=== PATIENT | female | born 1975 | race Two or more races ===

== ENCOUNTER 2016-05-22 23:20 | Inpatient (IN) | payer MEDICARE, MEDICAID ==
[2016-05-23] MEDS ORDERED: SERTRALINE HCL25 M3 PO (00:09)
[2016-05-23] MEDS ORDERED: VIBRAMYCIN100 M1 PO ×2 (00:09→00:16)
[2016-05-23] MEDS ORDERED: HYDROCODON-ACE1 EA16 PO (00:10)
[2016-05-23] MEDS ORDERED: NASAL ALLERGY S13 ML (00:11)
[2016-05-23] MEDS ORDERED: VITAMIN A10000 UNI2 PO (00:11)
[2016-05-23] MEDS ORDERED: DULERA 200 MCG/13 G1 INH (00:13)
[2016-05-23] MEDS ORDERED: PEPTO-BISM262 MG/11 PO (00:13)
[2016-05-23] MEDS ORDERED: B-121000 MC2 PO (00:13)
[2016-05-23] MEDS ORDERED: DIFLUCAN100 M1 PO (00:14)
[2016-05-23] MEDS ORDERED: VITAMIN C500 M2 PO (00:15)
[2016-05-23] MEDS ORDERED: PROMETHAZINE HC25 M3 PO (00:18)
[2016-05-23 00:57] LABS: EOS % 2.2 % (0-7); HCT-HEMATOCRIT 26.9 % (34.0-49.0); HGB-HEMOGLOBIN 9.2 gm/dl (12.0-15.5); LYMPH % 49.4 % (20-45); LYMPH ABSOLUTE COUNT 0.9 tho/cmm (0.8-4.5); MCH (MEAN CORPUSCULAR HGB) 31.1 pg (28.0-32.0); MCHC MEAN CORPUSCULAR HGB CONC 34.2 % (32.0-36.0); MCV (MEAN CELL VOLUME) 90.9 fl (82.0-96.0); MEAN PLATELET VOLUME 10.4 cmc (9.4-12.4); MONO % 14.4 % (0-12); MONOCYTE ABSOLUTE COUNT 0.3 tho/cmm (0.0-1.2); NEUTROPHIL ABSOLUTE COUNT 0.6 tho/cmm (1.6-8.0); NEUTROPHIL-AUTOMATED 0.6 tho/cmm (1.6-8.0); PLATELET COUNT 172 tho/cmm (150-450); RED BLOOD COUNT 2.96 mil/cmm (4.00-5.20); RED CELL DISTRIBUTION WIDTH 14.4 % (12.4-16.4)
[2016-05-23 01:03] LABS: WHITE BLOOD COUNT 1.8 tho/cmm (4.0-10.0)
--- NOTE | 2016-05-23 04:18 | NUR ---
KAILEE YUAN APPLIED TO PT.
[2016-05-23 05:49] LABS: BASO % 0.7 % (0-2); EOS % 1.4 % (0-7); HCT-HEMATOCRIT 26.8 % (34.0-49.0); LYMPH % 52.1 % (20-45); LYMPH ABSOLUTE COUNT 0.7 tho/cmm (0.8-4.5); MCH (MEAN CORPUSCULAR HGB) 30.4 pg (28.0-32.0); MCHC MEAN CORPUSCULAR HGB CONC 33.6 % (32.0-36.0); MCV (MEAN CELL VOLUME) 90.5 fl (82.0-96.0); MONO % 14.1 % (0-12); MONOCYTE ABSOLUTE COUNT 0.2 tho/cmm (0.0-1.2); NEUTROPHILS % 31.7 % (40-80); PLATELET COUNT 164 tho/cmm (150-450); RED BLOOD COUNT 2.96 mil/cmm (4.00-5.20); RED CELL DISTRIBUTION WIDTH 14.5 % (12.4-16.4)
[2016-05-23 06:09] LABS: ALB/GLOB RATIO 0.4 (0.8-2.0); ALBUMIN 2.3 g/dl (3.5-5.0); ALKALINE PHOSPHATASE 62 U/L (33-138); ALT/SGPT 18 U/L (12-78); ANION GAP 11 mmol/L (0-20); AST/SGOT 24 U/L (10-40); BILIRUBIN,TOTAL 0.1 mg/dl (0-1.5); BLOOD UREA NITROGEN 7 mg/dl (6-24); CALCIUM 8.3 mg/dl (8.5-10.5); CARBON DIOXIDE-VENOUS 27 mmol/L (22-32); CHLORIDE 109 mmol/l (96-110); CREATININE 0.47 mg/dl (0.50-1.10); GLUCOSE 76 mg/dL (70-110); POTASSIUM 3.9 mmol/L (3.7-5.1); SODIUM 143 mmol/L (135-145); eGFR VALUE FOR BLACK >60 mL/Min
[2016-05-23 06:12] LABS: WHITE BLOOD COUNT 1.4 tho/cmm (4.0-10.0)
[2016-05-23 06:13] LABS: NEUTROPHIL ABSOLUTE COUNT 0.5 tho/cmm (1.6-8.0); NEUTROPHIL-AUTOMATED 0.5 tho/cmm (1.6-8.0)
[2016-05-23 19:49] LABS: URINE BILIRUBIN NEGATIVE (NEG); URINE BLOOD NEGATIVE (NEG); URINE GLUCOSE (UA) NEGATIVE (NEG); URINE KETONE NEGATIVE (NEG); URINE LEUKOCYTE ESTERASE NEGATIVE (NEG); URINE NITRITE NEGATIVE (NEG); URINE PROTEIN NEGATIVE (NEG)
[2016-05-23 20:04] LABS: URINE APPEARANCE HAZY; URINE COLOR PALE YELLOW; URINE SPECIFIC GRAVITY 1.005 (1.003-1.030)
[2016-05-23 20:05] LABS: URINE AMORPHOUS 1+; URINE BACTERIA 1+; URINE RBC RARE /[HPF] (0-5); URINE WBC RARE /[HPF] (0-5)
[2016-05-24 07:12] LABS: BASO % 0.6 % (0-2); EOS % 1.2 % (0-7); HCT-HEMATOCRIT 27.5 % (34.0-49.0); HGB-HEMOGLOBIN 9.1 gm/dl (12.0-15.5); LYMPH % 54.6 % (20-45); LYMPH ABSOLUTE COUNT 0.9 tho/cmm (0.8-4.5); MCH (MEAN CORPUSCULAR HGB) 30.1 pg (28.0-32.0); MCHC MEAN CORPUSCULAR HGB CONC 33.1 % (32.0-36.0); MCV (MEAN CELL VOLUME) 91.1 fl (82.0-96.0); MEAN PLATELET VOLUME 10.5 cmc (9.4-12.4); MONO % 12.9 % (0-12); MONOCYTE ABSOLUTE COUNT 0.2 tho/cmm (0.0-1.2); NEUTROPHILS % 30.7 % (40-80); PLATELET COUNT 191 tho/cmm (150-450); RED BLOOD COUNT 3.02 mil/cmm (4.00-5.20); RED CELL DISTRIBUTION WIDTH 14.7 % (12.4-16.4)
[2016-05-24 07:26] LABS: PREGNANCY-SERUM NEGATIVE (NEGATIVE)
[2016-05-24 07:31] LABS: NEUTROPHIL ABSOLUTE COUNT 0.5 tho/cmm (1.6-8.0); NEUTROPHIL-AUTOMATED 0.5 tho/cmm (1.6-8.0); WHITE BLOOD COUNT 1.6 tho/cmm (4.0-10.0)
[2016-05-24 07:35] LABS: ANION GAP 9 mmol/L (0-20); BLOOD UREA NITROGEN 5 mg/dl (6-24); CALCIUM 8.1 mg/dl (8.5-10.5); CARBON DIOXIDE-VENOUS 29 mmol/L (22-32); CHLORIDE 110 mmol/l (96-110); CREATININE 0.57 mg/dl (0.50-1.10); GLUCOSE 79 mg/dL (70-110); IRON BINDING CAPACITY 233 ug/dl (250-450); POTASSIUM 3.4 mmol/L (3.7-5.1); SODIUM 145 mmol/L (135-145); eGFR VALUE FOR BLACK >60 mL/Min
[2016-05-24 07:39] LABS: IRON 46 ug/dl (37-170); TSH-THYROID STIMULATING HORM. 2.02 uIU/ml (0.40-3.80)
[2016-05-24 16:43] LABS: BASO % 0.4 % (0-2); EOS % 1.3 % (0-7); HCT-HEMATOCRIT 28.5 % (34.0-49.0); HGB-HEMOGLOBIN 9.6 gm/dl (12.0-15.5); LYMPH % 38.3 % (20-45); LYMPH ABSOLUTE COUNT 0.9 tho/cmm (0.8-4.5); MCH (MEAN CORPUSCULAR HGB) 30.5 pg (28.0-32.0); MCHC MEAN CORPUSCULAR HGB CONC 33.7 % (32.0-36.0); MCV (MEAN CELL VOLUME) 90.5 fl (82.0-96.0); MEAN PLATELET VOLUME 10.2 cmc (9.4-12.4); MONO % 21.6 % (0-12); MONOCYTE ABSOLUTE COUNT 0.5 tho/cmm (0.0-1.2); NEUTROPHIL ABSOLUTE COUNT 0.9 tho/cmm (1.6-8.0); NEUTROPHIL-AUTOMATED 0.9 tho/cmm (1.6-8.0); NEUTROPHILS % 38.4 % (40-80); PLATELET COUNT 199 tho/cmm (150-450); RED BLOOD COUNT 3.15 mil/cmm (4.00-5.20); RED CELL DISTRIBUTION WIDTH 14.5 % (12.4-16.4); WHITE BLOOD COUNT 2.3 tho/cmm (4.0-10.0)
[2016-05-24 16:51] LABS: INR 1.1 INR (0.9-1.1); PROTHROMBIN TIME 12.8 SECONDS (9.0-13.6)
[2016-05-24 17:04] LABS: ALB/GLOB RATIO 0.4 (0.8-2.0); ALBUMIN 2.6 g/dl (3.5-5.0); ALKALINE PHOSPHATASE 71 U/L (33-138); ALT/SGPT 17 U/L (12-78); ANION GAP 10 mmol/L (0-20); AST/SGOT 25 U/L (10-40); BLOOD UREA NITROGEN 8 mg/dl (6-24); CALCIUM 8.5 mg/dl (8.5-10.5); CARBON DIOXIDE-VENOUS 28 mmol/L (22-32); CHLORIDE 109 mmol/l (96-110); CREATININE 0.66 mg/dl (0.50-1.10); GLUCOSE 92 mg/dL (70-110); POTASSIUM 3.9 mmol/L (3.7-5.1); SODIUM 143 mmol/L (135-145); eGFR VALUE FOR BLACK >60 mL/Min
[2016-05-24 17:26] LABS: BILIRUBIN,TOTAL 0.2 mg/dl (0-1.5)
[2016-05-25 07:09] LABS: BASO % 0.4 % (0-2); EOS % 1.7 % (0-7); HCT-HEMATOCRIT 28.2 % (34.0-49.0); HGB-HEMOGLOBIN 9.5 gm/dl (12.0-15.5); LYMPH % 32.2 % (20-45); LYMPH ABSOLUTE COUNT 0.8 tho/cmm (0.8-4.5); MCH (MEAN CORPUSCULAR HGB) 30.6 pg (28.0-32.0); MCHC MEAN CORPUSCULAR HGB CONC 33.7 % (32.0-36.0); MEAN PLATELET VOLUME 10.3 cmc (9.4-12.4); MONO % 16.1 % (0-12); MONOCYTE ABSOLUTE COUNT 0.4 tho/cmm (0.0-1.2); NEUTROPHIL ABSOLUTE COUNT 1.2 tho/cmm (1.6-8.0); NEUTROPHIL-AUTOMATED 1.2 tho/cmm (1.6-8.0); NEUTROPHILS % 49.6 % (40-80); PLATELET COUNT 185 tho/cmm (150-450); RED CELL DISTRIBUTION WIDTH 14.4 % (12.4-16.4); WHITE BLOOD COUNT 2.4 tho/cmm (4.0-10.0)
[2016-05-28 06:12] LABS: BASO % 0.7 % (0-2); EOS % 4.7 % (0-7); EOSINOPHIL ABSOLUTE COUNT 0.1 tho/cmm (0.0-0.7); HCT-HEMATOCRIT 30.4 % (34.0-49.0); HGB-HEMOGLOBIN 10.1 gm/dl (12.0-15.5); LYMPH % 48.6 % (20-45); LYMPH ABSOLUTE COUNT 1.4 tho/cmm (0.8-4.5); MCH (MEAN CORPUSCULAR HGB) 30.2 pg (28.0-32.0); MCHC MEAN CORPUSCULAR HGB CONC 33.2 % (32.0-36.0); MEAN PLATELET VOLUME 10.6 cmc (9.4-12.4); MONO % 16.2 % (0-12); MONOCYTE ABSOLUTE COUNT 0.5 tho/cmm (0.0-1.2); NEUTROPHIL ABSOLUTE COUNT 0.9 tho/cmm (1.6-8.0); NEUTROPHIL-AUTOMATED 0.9 tho/cmm (1.6-8.0); NEUTROPHILS % 29.8 % (40-80); PLATELET COUNT 212 tho/cmm (150-450); RED BLOOD COUNT 3.34 mil/cmm (4.00-5.20); RED CELL DISTRIBUTION WIDTH 14.5 % (12.4-16.4)
[2016-05-28 06:44] LABS: ESR-ERYTHROCYTE SED RATE 90 mm/hr (0-20)
[2016-05-28 07:00] LABS: ALB/GLOB RATIO 0.4 (0.8-2.0); ALBUMIN 2.5 g/dl (3.5-5.0); ALKALINE PHOSPHATASE 66 U/L (33-138); ALT/SGPT 18 U/L (12-78); ANION GAP 11 mmol/L (0-20); AST/SGOT 18 U/L (10-40); BILIRUBIN,TOTAL 0.2 mg/dl (0-1.5); BLOOD UREA NITROGEN 9 mg/dl (6-24); CALCIUM 8.4 mg/dl (8.5-10.5); CARBON DIOXIDE-VENOUS 24 mmol/L (22-32); CHLORIDE 110 mmol/l (96-110); CREATININE 0.63 mg/dl (0.50-1.10); GLUCOSE 83 mg/dL (70-110); MAGNESIUM 1.9 mg/dl (1.3-2.6); POTASSIUM 3.9 mmol/L (3.7-5.1); SODIUM 141 mmol/L (135-145); eGFR VALUE FOR BLACK >60 mL/Min
[2016-05-28 07:26] LABS: C-REACTIVE PROTEIN <0.3 mg/dl (0-0.9)
[2016-05-29 05:36] LABS: BASO % 0.4 % (0-2); EOSINOPHIL ABSOLUTE COUNT 0.1 tho/cmm (0.0-0.7); HCT-HEMATOCRIT 29.4 % (34.0-49.0); HGB-HEMOGLOBIN 9.8 gm/dl (12.0-15.5); LYMPH % 42.2 % (20-45); MCH (MEAN CORPUSCULAR HGB) 30.4 pg (28.0-32.0); MCHC MEAN CORPUSCULAR HGB CONC 33.3 % (32.0-36.0); MCV (MEAN CELL VOLUME) 91.3 fl (82.0-96.0); MEAN PLATELET VOLUME 10.4 cmc (9.4-12.4); MONO % 13.9 % (0-12); MONOCYTE ABSOLUTE COUNT 0.3 tho/cmm (0.0-1.2); NEUTROPHIL ABSOLUTE COUNT 0.9 tho/cmm (1.6-8.0); NEUTROPHIL-AUTOMATED 0.9 tho/cmm (1.6-8.0); NEUTROPHILS % 40.5 % (40-80); PLATELET COUNT 225 tho/cmm (150-450); RED BLOOD COUNT 3.22 mil/cmm (4.00-5.20); RED CELL DISTRIBUTION WIDTH 14.2 % (12.4-16.4); WHITE BLOOD COUNT 2.3 tho/cmm (4.0-10.0)
[2016-05-29 06:01] LABS: ALB/GLOB RATIO 0.4 (0.8-2.0); ALBUMIN 2.5 g/dl (3.5-5.0); ALKALINE PHOSPHATASE 69 U/L (33-138); ALT/SGPT 16 U/L (12-78); BILIRUBIN,TOTAL 0.2 mg/dl (0-1.5); BLOOD UREA NITROGEN 10 mg/dl (6-24); CALCIUM 8.7 mg/dl (8.5-10.5); CARBON DIOXIDE-VENOUS 24 mmol/L (22-32); CHLORIDE 106 mmol/l (96-110); CREATININE 0.65 mg/dl (0.50-1.10); GLUCOSE 119 mg/dL (70-110); PHOSPHOROUS 3.5 mg/dl (2.5-4.9); SODIUM 139 mmol/L (135-145); eGFR VALUE FOR BLACK >60 mL/Min
[2016-05-29 06:15] LABS: ANION GAP 13 mmol/L (0-20); AST/SGOT 20 U/L (10-40); MAGNESIUM 1.8 mg/dl (1.3-2.6); POTASSIUM 3.5 mmol/L (3.7-5.1)
[2016-05-29] MEDS ORDERED: BACTRIM DS TAB1 EAC2 PO (15:52)
== END 2016-05-29 16:35 | DRG 812 ==
LOC: EDMED 23:20 → EMR2 05-23 02:42 → 5WF 05-23 03:10
PROVIDERS: Emergency Medicine Emergency Medical Services; Hospitalist; Internal Medicine; Internal Medicine Cardiovascular Disease; Internal Medicine Medical Oncology; Registered Nurse; ADMIT Hospitalist
DX: D57.1 Sickle-cell disease without crisis (principal); D61.818 Other pancytopenia; D84.9 Immunodeficiency, unspecified; H54.42 Blindness, left eye, normal vision right eye; Z21 Asymptomatic human immunodeficiency virus [HIV] infection status; K21.9 Gastro-esophageal reflux disease without esophagitis; J45.909 Unspecified asthma, uncomplicated; K58.9 Irritable bowel syndrome, unspecified; Z85.828 Personal history of other malignant neoplasm of skin; Z23 Encounter for immunization
CPT/HCPCS: A9577; G0008; G0009; J2270; J2405; J7030

== ENCOUNTER 2016-07-19 09:30 | Inpatient (IN) | payer MEDICARE, MEDICAID ==
[~2016-07-19 09:30] MED LIST: B-121000 MC2 PO; BACTRIM DS TAB1 EAC2 PO; DIFLUCAN100 M1 PO; DULERA 200 MCG/13 G1 INH; HYDROCODON-ACE1 EA16 PO; NASAL ALLERGY S13 ML; PEPTO-BISM262 MG/11 PO; PROMETHAZINE HC25 M3 PO; SERTRALINE HCL25 M3 PO; VIBRAMYCIN100 M1 PO; VITAMIN A10000 UNI2 PO; VITAMIN C500 M2 PO
[2016-07-19] MEDS ORDERED: FLONASE ALLERG9.9 ML (09:35)
[2016-07-19] MEDS ORDERED: ZITHROMAX PO (09:35)
[2016-07-19] MEDS ORDERED: IRON325 M3 PO (09:36)
[2016-07-19] MEDS ORDERED: MECLIZINE HCL25 M3 PO (09:38)
[2016-07-19] MEDS ORDERED: SINGULAIR10 M1 PO (09:38)
[2016-07-19] MEDS ORDERED: CLOTRIMAZOLE10 M1 MM (09:39)
[2016-07-19] MEDS ORDERED: ADVAIR HFA 1151 PUFF INH (09:52)
[2016-07-19] MEDS ORDERED: CYCLOBENZAPRINE10 M1 PO (09:52)
[2016-07-19] MEDS ORDERED: ATORVASTATIN CA40 M1 PO (09:53)
[2016-07-19] MEDS ORDERED: VENTOLIN HFA18 G2 INH (09:53)
[2016-07-19] MEDS ORDERED: BACTRIM DS TAB1 EAC2 PO (09:54)
[2016-07-19 11:38] LABS: BASO % 0.6 % (0-2); EOS % 1.2 % (0-7); HGB-HEMOGLOBIN 9.7 gm/dl (12.0-15.5); LYMPH % 46.8 % (20-45); LYMPH ABSOLUTE COUNT 0.8 tho/cmm (0.8-4.5); MCH (MEAN CORPUSCULAR HGB) 30.7 pg (28.0-32.0); MCHC MEAN CORPUSCULAR HGB CONC 33.4 % (32.0-36.0); MCV (MEAN CELL VOLUME) 91.8 fl (82.0-96.0); MEAN PLATELET VOLUME 9.8 cmc (9.4-12.4); MONO % 11.1 % (0-12); MONOCYTE ABSOLUTE COUNT 0.2 tho/cmm (0.0-1.2); NEUTROPHIL ABSOLUTE COUNT 0.7 tho/cmm (1.6-8.0); NEUTROPHIL-AUTOMATED 0.7 tho/cmm (1.6-8.0); NEUTROPHILS % 40.3 % (40-80); PLATELET COUNT 191 tho/cmm (150-450); RED BLOOD COUNT 3.16 mil/cmm (4.00-5.20); RED CELL DISTRIBUTION WIDTH 13.5 % (12.4-16.4)
[2016-07-19 11:39] LABS: URINE APPEARANCE HAZY; URINE BILIRUBIN NEGATIVE (NEG); URINE BLOOD NEGATIVE (NEG); URINE COLOR YELLOW; URINE GLUCOSE (UA) NEGATIVE (NEG); URINE KETONE NEGATIVE (NEG); URINE LEUKOCYTE ESTERASE NEGATIVE (NEG); URINE NITRITE NEGATIVE (NEG); URINE PROTEIN SMALL (NEG)
[2016-07-19 11:42] LABS: WHITE BLOOD COUNT 1.7 tho/cmm (4.0-10.0)
[2016-07-19 11:46] LABS: PREGNANCY-SERUM NEGATIVE (NEGATIVE)
[2016-07-19 11:52] LABS: ALB/GLOB RATIO 0.4 (0.8-2.0); ALBUMIN 2.7 g/dl (3.5-5.0); ALKALINE PHOSPHATASE 82 U/L (33-138); ALT/SGPT 18 U/L (12-78); ANION GAP 9 mmol/L (0-20); AST/SGOT 18 U/L (10-40); BILIRUBIN,TOTAL 0.1 mg/dl (0-1.5); BLOOD UREA NITROGEN 10 mg/dl (6-24); CALCIUM 8.2 mg/dl (8.5-10.5); CARBON DIOXIDE-VENOUS 26 mmol/L (22-32); CHLORIDE 111 mmol/l (96-110); CREATININE 0.83 mg/dl (0.50-1.10); GLUCOSE 76 mg/dL (70-110); POTASSIUM 4.2 mmol/L (3.7-5.1); SODIUM 142 mmol/L (135-145); T4 (THYROXINE) 9.8 ug/dl (5.0-12.6); eGFR VALUE FOR BLACK >90 mL/Min
[2016-07-19 11:54] LABS: URINE EPITHELIAL CELLS 18-20 /[HPF] (0-10); URINE RBC RARE /[HPF] (0-5); URINE WBC RARE /[HPF] (0-5)
[2016-07-19 11:55] LABS: C-REACTIVE PROTEIN <0.3 mg/dl (0-0.9)
[2016-07-19 11:57] LABS: TSH-THYROID STIMULATING HORM. 2.35 uIU/ml (0.40-3.80)
[2016-07-19 12:01] LABS: INR 1.1 INR (0.9-1.1); PROTHROMBIN TIME 12.5 SECONDS (9.0-13.6)
[2016-07-19 12:25] LABS: PROCALCITONIN <0.05 ng/ml (0.05-0.09)
[2016-07-19 12:33] LABS: ESR-ERYTHROCYTE SED RATE 15 mm/hr (0-20)
[2016-07-19 22:13] LABS: CREATINE PHOSPHOKINASE (CPK) 32 U/L (21-215); MAGNESIUM 2.1 mg/dl (1.3-2.6); PHOSPHOROUS 3.6 mg/dl (2.5-4.9)
[2016-07-19 22:15] LABS: C-REACTIVE PROTEIN <0.3 mg/dl (0-0.9)
[2016-07-20 06:28] LABS: BASO % 0.5 % (0-2); HCT-HEMATOCRIT 28.6 % (34.0-49.0); HGB-HEMOGLOBIN 9.5 gm/dl (12.0-15.5); LYMPH ABSOLUTE COUNT 0.9 tho/cmm (0.8-4.5); MCH (MEAN CORPUSCULAR HGB) 30.5 pg (28.0-32.0); MCHC MEAN CORPUSCULAR HGB CONC 33.2 % (32.0-36.0); MONO % 15.3 % (0-12); MONOCYTE ABSOLUTE COUNT 0.3 tho/cmm (0.0-1.2); NEUTROPHIL ABSOLUTE COUNT 0.7 tho/cmm (1.6-8.0); NEUTROPHIL-AUTOMATED 0.7 tho/cmm (1.6-8.0); NEUTROPHILS % 35.2 % (40-80); PLATELET COUNT 190 tho/cmm (150-450); RED BLOOD COUNT 3.11 mil/cmm (4.00-5.20); RED CELL DISTRIBUTION WIDTH 13.6 % (12.4-16.4)
[2016-07-20 06:42] LABS: ALB/GLOB RATIO 0.4 (0.8-2.0); ALBUMIN 2.6 g/dl (3.5-5.0); ALKALINE PHOSPHATASE 79 U/L (33-138); ALT/SGPT 16 U/L (12-78); ANION GAP 7 mmol/L (0-20); AST/SGOT 18 U/L (10-40); BILIRUBIN,TOTAL 0.1 mg/dl (0-1.5); BLOOD UREA NITROGEN 9 mg/dl (6-24); CALCIUM 8.3 mg/dl (8.5-10.5); CARBON DIOXIDE-VENOUS 27 mmol/L (22-32); CHLORIDE 110 mmol/l (96-110); CREATININE 0.75 mg/dl (0.50-1.10); GLUCOSE 84 mg/dL (70-110); POTASSIUM 3.9 mmol/L (3.7-5.1); SODIUM 140 mmol/L (135-145); eGFR VALUE FOR BLACK >90 mL/Min
[2016-07-20 16:41] LABS: HCT-HEMATOCRIT 30.1 % (34.0-49.0); HGB-HEMOGLOBIN 9.9 gm/dl (12.0-15.5); MCH (MEAN CORPUSCULAR HGB) 30.5 pg (28.0-32.0); MCHC MEAN CORPUSCULAR HGB CONC 32.9 % (32.0-36.0); MCV (MEAN CELL VOLUME) 92.6 fl (82.0-96.0); MEAN PLATELET VOLUME 9.5 cmc (9.4-12.4); NEUTROPHIL-AUTOMATED 0.8 tho/cmm (1.6-8.0); PLATELET COUNT 185 tho/cmm (150-450); RED BLOOD COUNT 3.25 mil/cmm (4.00-5.20); RED CELL DISTRIBUTION WIDTH 13.5 % (12.4-16.4); WHITE BLOOD COUNT 2.1 tho/cmm (4.0-10.0)
[2016-07-20 16:49] LABS: CSF GLUCOSE 41 mg/dl (40-75)
[2016-07-20 17:15] LABS: INR 1.1 INR (0.9-1.1); PROTHROMBIN TIME 12.7 SECONDS (9.0-13.6)
[2016-07-20 17:19] LABS: EOSINOPHIL % 1 % (0-7)
[2016-07-20 17:40] LABS: CSF APPEARANCE CLEAR (CLEAR); CSF COLOR COLORLESS (COLORLESS); CSF RBC CT 0 cmm (0); CSF TUBE NUMBER CSF TUBE 3; CSF VOLUME 13.5 ml
[2016-07-20 18:33] LABS: CSF LYMPHOCYTES 96 % (40-80); CSF MONOCYTES 4 % (15-45)
[2016-07-20 18:35] LABS: CSF WBC CT 129 cmm (0-10)
[2016-07-21 14:25] LABS: BASO % 0.3 % (0-2); EOS % 0.3 % (0-7); HCT-HEMATOCRIT 28.6 % (34.0-49.0); HGB-HEMOGLOBIN 9.6 gm/dl (12.0-15.5); LYMPH % 39.9 % (20-45); LYMPH ABSOLUTE COUNT 1.2 tho/cmm (0.8-4.5); MCHC MEAN CORPUSCULAR HGB CONC 33.6 % (32.0-36.0); MCV (MEAN CELL VOLUME) 92.3 fl (82.0-96.0); MEAN PLATELET VOLUME 9.8 cmc (9.4-12.4); MONO % 16.3 % (0-12); MONOCYTE ABSOLUTE COUNT 0.5 tho/cmm (0.0-1.2); NEUTROPHIL ABSOLUTE COUNT 1.3 tho/cmm (1.6-8.0); NEUTROPHIL-AUTOMATED 1.3 tho/cmm (1.6-8.0); NEUTROPHILS % 43.2 % (40-80); PLATELET COUNT 195 tho/cmm (150-450); RED CELL DISTRIBUTION WIDTH 13.6 % (12.4-16.4); WHITE BLOOD COUNT 3.1 tho/cmm (4.0-10.0)
[2016-07-22 05:20] LABS: BASO % 0.2 % (0-2); EOS % 0.2 % (0-7); HGB-HEMOGLOBIN 9.9 gm/dl (12.0-15.5); LYMPH % 31.7 % (20-45); LYMPH ABSOLUTE COUNT 1.4 tho/cmm (0.8-4.5); MCH (MEAN CORPUSCULAR HGB) 30.2 pg (28.0-32.0); MCV (MEAN CELL VOLUME) 91.5 fl (82.0-96.0); MEAN PLATELET VOLUME 9.4 cmc (9.4-12.4); MONO % 11.2 % (0-12); MONOCYTE ABSOLUTE COUNT 0.5 tho/cmm (0.0-1.2); NEUTROPHIL ABSOLUTE COUNT 2.5 tho/cmm (1.6-8.0); NEUTROPHIL-AUTOMATED 2.5 tho/cmm (1.6-8.0); NEUTROPHILS % 56.7 % (40-80); PLATELET COUNT 198 tho/cmm (150-450); RED BLOOD COUNT 3.28 mil/cmm (4.00-5.20); RED CELL DISTRIBUTION WIDTH 13.3 % (12.4-16.4); WHITE BLOOD COUNT 4.4 tho/cmm (4.0-10.0)
[2016-07-22 05:33] LABS: ANION GAP 10 mmol/L (0-20); BLOOD UREA NITROGEN 10 mg/dl (6-24); CALCIUM 8.5 mg/dl (8.5-10.5); CARBON DIOXIDE-VENOUS 26 mmol/L (22-32); CHLORIDE 106 mmol/l (96-110); CREATININE 0.81 mg/dl (0.50-1.10); GLUCOSE 92 mg/dL (70-110); SODIUM 138 mmol/L (135-145); eGFR VALUE FOR BLACK >90 mL/Min
[2016-07-22 14:25] LABS: URINE BILIRUBIN NEGATIVE (NEG); URINE BLOOD LARGE (NEG); URINE GLUCOSE (UA) NEGATIVE (NEG); URINE KETONE NEGATIVE (NEG); URINE LEUKOCYTE ESTERASE POSITIVE (NEG); URINE NITRITE NEGATIVE (NEG); URINE PROTEIN MODERATE (NEG)
[2016-07-22 14:28] LABS: URINE APPEARANCE CLEAR; URINE COLOR YELLOW; URINE OTHER VOLUME 1 ML
[2016-07-22 14:35] LABS: URINE BACTERIA 1+
[2016-07-22 14:36] LABS: URINE EPITHELIAL CELLS 0-1 /[HPF] (0-10); URINE WBC 15-30 /[HPF] (0-5)
[2016-07-23 05:47] LABS: BASO % 0.2 % (0-2); EOS % 0.7 % (0-7); HCT-HEMATOCRIT 30.3 % (34.0-49.0); HGB-HEMOGLOBIN 10.1 gm/dl (12.0-15.5); IMMATURE GRANULOCYTES ABSOLUTE 0.01 tho/cmm (0-0.03); IMMATURE GRANULOCYTES PERCENT 0.2 % (0-0.3); LYMPH % 29.2 % (20-45); LYMPH ABSOLUTE COUNT 1.3 tho/cmm (0.8-4.5); MCH (MEAN CORPUSCULAR HGB) 30.8 pg (28.0-32.0); MCHC MEAN CORPUSCULAR HGB CONC 33.3 % (32.0-36.0); MCV (MEAN CELL VOLUME) 92.4 fl (82.0-96.0); MEAN PLATELET VOLUME 9.8 cmc (9.4-12.4); MONO % 13.9 % (0-12); MONOCYTE ABSOLUTE COUNT 0.6 tho/cmm (0.0-1.2); NEUTROPHIL ABSOLUTE COUNT 2.5 tho/cmm (1.6-8.0); NEUTROPHIL-AUTOMATED 2.5 tho/cmm (1.6-8.0); NEUTROPHILS % 55.8 % (40-80); PLATELET COUNT 209 tho/cmm (150-450); RED BLOOD COUNT 3.28 mil/cmm (4.00-5.20); RED CELL DISTRIBUTION WIDTH 13.5 % (12.4-16.4); WHITE BLOOD COUNT 4.5 tho/cmm (4.0-10.0)
[2016-07-23 06:13] LABS: ANION GAP 11 mmol/L (0-20); BLOOD UREA NITROGEN 15 mg/dl (6-24); CALCIUM 8.6 mg/dl (8.5-10.5); CARBON DIOXIDE-VENOUS 28 mmol/L (22-32); CHLORIDE 105 mmol/l (96-110); CREATININE 0.82 mg/dl (0.50-1.10); GLUCOSE 103 mg/dL (70-110); POTASSIUM 4.1 mmol/L (3.7-5.1); SODIUM 140 mmol/L (135-145); eGFR VALUE FOR BLACK >90 mL/Min
== END 2016-07-24 16:04 | DRG 975 ==
LOC: EDMED 09:30 → EMR2 16:15 → 5EB 17:20
PROVIDERS: Emergency Medicine; Family Medicine; Internal Medicine Infectious Disease; Psychiatry & Neurology Neurology; Radiology Diagnostic Radiology; ADMIT Internal Medicine
PROC: 009U3ZX Drainage of Spinal Canal, Percutaneous Approach, Diagnostic (ICD-10-PCS; principal; 2016-07-20)
DX: B20 Human immunodeficiency virus [HIV] disease (principal); B25.9 Cytomegaloviral disease, unspecified; N39.0 Urinary tract infection, site not specified; K92.1 Melena; G62.9 Polyneuropathy, unspecified; R33.9 Retention of urine, unspecified; D57.1 Sickle-cell disease without crisis; B96.20 Unspecified Escherichia coli [E. coli] as the cause of diseases classified elsewhere; G89.29 Other chronic pain; H26.31 Drug-induced cataract, right eye; J45.909 Unspecified asthma, uncomplicated; K21.9 Gastro-esophageal reflux disease without esophagitis; K58.9 Irritable bowel syndrome, unspecified; Z88.0 Allergy status to penicillin; Z88.8 Allergy status to other drugs, medicaments and biological substances; Z91.14 Patient's other noncompliance with medication regimen; R42 Dizziness and giddiness; M25.562 Pain in left knee; M25.561 Pain in right knee; M54.2 Cervicalgia; Z59.0 Homelessness; H54.8 Legal blindness, as defined in USA; M25.519 Pain in unspecified shoulder; Z79.899 Other long term (current) drug therapy; D72.819 Decreased white blood cell count, unspecified
CPT/HCPCS: A9577; J2405; J7030; Q9967

== ENCOUNTER 2016-08-04 03:12 | Inpatient (IN) | payer MEDICARE, MEDICAID ==
[~2016-08-04 03:12] MED LIST changes: +ADVAIR HFA 1151 PUFF INH; +ATORVASTATIN CA40 M1 PO; +CLOTRIMAZOLE10 M1 MM; +CYCLOBENZAPRINE10 M1 PO; +FLONASE ALLERG9.9 ML; +IRON325 M3 PO; +MECLIZINE HCL25 M3 PO; +SINGULAIR10 M1 PO; +VENTOLIN HFA18 G2 INH; +ZITHROMAX PO
[2016-08-05 05:43] LABS: BASO % 0.7 % (0-2); HCT-HEMATOCRIT 28.2 % (34.0-49.0); HGB-HEMOGLOBIN 9.2 gm/dl (12.0-15.5); IMMATURE GRANULOCYTES ABSOLUTE 0.01 tho/cmm (0-0.03); IMMATURE GRANULOCYTES PERCENT 0.7 % (0-0.3); LYMPH % 47.6 % (20-45); LYMPH ABSOLUTE COUNT 0.7 tho/cmm (0.8-4.5); MCHC MEAN CORPUSCULAR HGB CONC 32.6 % (32.0-36.0); MCV (MEAN CELL VOLUME) 91.9 fl (82.0-96.0); MEAN PLATELET VOLUME 9.3 cmc (9.4-12.4); MONO % 17.2 % (0-12); MONOCYTE ABSOLUTE COUNT 0.3 tho/cmm (0.0-1.2); NEUTROPHILS % 33.8 % (40-80); PLATELET COUNT 178 tho/cmm (150-450); RED BLOOD COUNT 3.07 mil/cmm (4.00-5.20); RED CELL DISTRIBUTION WIDTH 14.6 % (12.4-16.4)
[2016-08-05 05:50] LABS: NEUTROPHIL ABSOLUTE COUNT 0.5 tho/cmm (1.6-8.0); NEUTROPHIL-AUTOMATED 0.5 tho/cmm (1.6-8.0); WHITE BLOOD COUNT 1.5 tho/cmm (4.0-10.0)
[2016-08-05 05:52] LABS: ANION GAP 11 mmol/L (0-20); BLOOD UREA NITROGEN 6 mg/dl (6-24); CARBON DIOXIDE-VENOUS 27 mmol/L (22-32); CHLORIDE 110 mmol/l (96-110); CREATININE 0.58 mg/dl (0.50-1.10); POTASSIUM 3.7 mmol/L (3.7-5.1); SODIUM 144 mmol/L (135-145); eGFR VALUE FOR BLACK >90 mL/Min
[2016-08-05 05:55] LABS: GLUCOSE 68 mg/dL (70-110)
--- NOTE | 2016-08-05 19:05 | NUR ---
VIRTUAL CARE NOTE: PT. TALKED TO THIS NURSE REGARDING HISTORY OF ISSUES AND HOW SHE IS SO STRESSED THAT TIMES SHE FEELS LIKE GIVING UP. VERBAL ENCOURAGEMENT OFFERED AND THIS NURSE LET THE PT. VOICE HER STORY FOR 15 TO 20 MINUTES. STATES SHE HAS PAIN IN HER BACK AND IN HER NEEDS, AND IS TAKING PAIN PILLS AT TIMES BECAUSE THE MORPHINE DOESN'T ALWAYS HELP. INSTRUCTED TO CALL FOR FURTHER NEEDS. STATES VERBAL AGREEMENT.
[2016-08-06 04:52] LABS: HCT-HEMATOCRIT 30.2 % (34.0-49.0); HGB-HEMOGLOBIN 10.3 gm/dl (12.0-15.5); LYMPH % 46.2 % (20-45); LYMPH ABSOLUTE COUNT 0.9 tho/cmm (0.8-4.5); MCH (MEAN CORPUSCULAR HGB) 30.9 pg (28.0-32.0); MCHC MEAN CORPUSCULAR HGB CONC 34.1 % (32.0-36.0); MCV (MEAN CELL VOLUME) 90.7 fl (82.0-96.0); MEAN PLATELET VOLUME 9.2 cmc (9.4-12.4); MONO % 12.3 % (0-12); MONOCYTE ABSOLUTE COUNT 0.2 tho/cmm (0.0-1.2); NEUTROPHIL ABSOLUTE COUNT 0.8 tho/cmm (1.6-8.0); NEUTROPHIL-AUTOMATED 0.8 tho/cmm (1.6-8.0); NEUTROPHILS % 40.5 % (40-80); PLATELET COUNT 185 tho/cmm (150-450); RED BLOOD COUNT 3.33 mil/cmm (4.00-5.20); RED CELL DISTRIBUTION WIDTH 14.2 % (12.4-16.4)
[2016-08-06 05:16] LABS: ALB/GLOB RATIO 0.4 (0.8-2.0); ALBUMIN 2.5 g/dl (3.5-5.0); ALKALINE PHOSPHATASE 85 U/L (33-138); ALT/SGPT 30 U/L (12-78); ANION GAP 12 mmol/L (0-20); AST/SGOT 32 U/L (10-40); BILIRUBIN,TOTAL 0.1 mg/dl (0-1.5); BLOOD UREA NITROGEN 6 mg/dl (6-24); CALCIUM 8.2 mg/dl (8.5-10.5); CARBON DIOXIDE-VENOUS 24 mmol/L (22-32); CHLORIDE 109 mmol/l (96-110); CREATININE 0.58 mg/dl (0.50-1.10); GLUCOSE 80 mg/dL (70-110); PHOSPHOROUS 2.8 mg/dl (2.5-4.9); POTASSIUM 3.7 mmol/L (3.7-5.1); SODIUM 141 mmol/L (135-145); eGFR VALUE FOR BLACK >90 mL/Min
[2016-08-06 05:36] LABS: PREALBUMIN 19.3 mg/dl (20.0-40.0)
[2016-08-07 05:39] LABS: BASO % 0.6 % (0-2); HCT-HEMATOCRIT 29.6 % (34.0-49.0); HGB-HEMOGLOBIN 9.9 gm/dl (12.0-15.5); IMMATURE GRANULOCYTES ABSOLUTE 0.01 tho/cmm (0-0.03); IMMATURE GRANULOCYTES PERCENT 0.6 % (0-0.3); LYMPH % 41.5 % (20-45); LYMPH ABSOLUTE COUNT 0.7 tho/cmm (0.8-4.5); MCH (MEAN CORPUSCULAR HGB) 30.6 pg (28.0-32.0); MCHC MEAN CORPUSCULAR HGB CONC 33.4 % (32.0-36.0); MCV (MEAN CELL VOLUME) 91.4 fl (82.0-96.0); MEAN PLATELET VOLUME 9.6 cmc (9.4-12.4); MONO % 9.7 % (0-12); MONOCYTE ABSOLUTE COUNT 0.2 tho/cmm (0.0-1.2); NEUTROPHIL ABSOLUTE COUNT 0.8 tho/cmm (1.6-8.0); NEUTROPHIL-AUTOMATED 0.8 tho/cmm (1.6-8.0); NEUTROPHILS % 47.6 % (40-80); PLATELET COUNT 196 tho/cmm (150-450); RED BLOOD COUNT 3.24 mil/cmm (4.00-5.20); RED CELL DISTRIBUTION WIDTH 14.4 % (12.4-16.4)
[2016-08-07 05:47] LABS: WHITE BLOOD COUNT 1.8 tho/cmm (4.0-10.0)
[2016-08-07 06:23] LABS: URINE BILIRUBIN NEGATIVE (NEG); URINE BLOOD NEGATIVE (NEG); URINE GLUCOSE (UA) NEGATIVE (NEG); URINE KETONE NEGATIVE (NEG); URINE LEUKOCYTE ESTERASE NEGATIVE (NEG); URINE NITRITE NEGATIVE (NEG); URINE PROTEIN NEGATIVE (NEG); URINE SPECIFIC GRAVITY 1.005 (1.003-1.030)
[2016-08-07 06:25] LABS: URINE APPEARANCE CLEAR; URINE COLOR COLORLESS
== END 2016-08-07 10:40 | DRG 313 ==
LOC: 5WD 03:12
PROVIDERS: Internal Medicine; Internal Medicine Infectious Disease; Nurse Practitioner; ADMIT Hospitalist
DX: R07.89 Other chest pain (principal); B20 Human immunodeficiency virus [HIV] disease; Z91.19 Patient's noncompliance with other medical treatment and regimen; D57.1 Sickle-cell disease without crisis; H54.12 Blindness, left eye, low vision right eye; J45.909 Unspecified asthma, uncomplicated; K21.9 Gastro-esophageal reflux disease without esophagitis; K58.9 Irritable bowel syndrome, unspecified; Z88.0 Allergy status to penicillin; Z88.8 Allergy status to other drugs, medicaments and biological substances; Z91.040 Latex allergy status; D72.819 Decreased white blood cell count, unspecified; E87.6 Hypokalemia; Z51.5 Encounter for palliative care; R53.1 Weakness; Z66 Do not resuscitate
CPT/HCPCS: G8978-GP-CK; G8979-GP-CJ; J1170; J1650; J2405; J7030